=== PATIENT | female | born 1975 | race Caucasian/White ===

== ENCOUNTER 2016-08-13 01:05 | Inpatient (IN) | payer MEDICAID, OTHER ==
[~2016-08-13] VITALS: Ht 144.8 cm; Wt 47.1 kg
[2016-08-13 03:23] VITALS: BP 100/60; PULSE 83; TEMP 98.1
[2016-08-13] MEDS ORDERED: MAGNESIUM HYDROXIDE SUSP 30 ML CUP PO PRN (03:45)
--- NOTE | 2016-08-13 13:22 | HHI.HP ---
Provisional Diagnosis Admission Date Aug 13, 2016 at 03:05 [place] I. Schizophrenia Certification of Person's Competence To Provide Express and Informed Consent I have personally examined Maribel Hennessy , a person being served at [facility] on, Aug 13, 2016 13:12. Express and informed consent means consent voluntarily given in writing, by a competent person, after sufficient explanation and disclosure of the subject matter involved to enable the person to make a knowing and willful decision without any element of force, fraud, deceit, duress, or other form of constraint or coercion. This person is 18 years of age or older, is not now known to be incompetent to consent to treatment with a guardian advocate, and does not have a health care surrogate or proxy currently making medical treatment decisions. I have found this person to be one of the following: [] Competent to provide express and informed consent, as defined above, for voluntary admission to this facility and is competent to provide express and informed consent for treatment. He/she has the consistent capacity to make well reasoned, willful, and knowing decisions concerning his or her medical or mental health treatment. The person fully and consistently understands the purpose of the admission for examination/placement and is fully capable of personally exercising all rights assured under [place] [x] Incompetent to provide express and informed consent to voluntary admission, and this is incompetent to provide express and informed consent to treatment. The person must be transferred to involuntary status and a petition for a guardian advocate filed with the Circuit Court. [] Refusing to provide express and informed consent to voluntary admission but is competent to provide express and informed consent for treatment. The person must be discharged or transferred to involuntary status. Form shall be completed within 24 hours of a person's arrival at the receiving facility and filed in the clinical record of each person: 1. Admitted on a voluntary basis 2. Permitted to provide express and informed consent to his/her own treatment 3. Allowed to transfer from involuntary to voluntary status 4. Prior to permitting a person to consent to his or her own treatment after having been previously found incompetent to consent to treatment. History of Present Illness Capacity: Lacks Capacity HPI This is a 41-year-old female who was transferred to this facility under a Christianson act which was initiated at [facility]. The patient is an extremely poor historian and indicates that she is homeless and living in [place]. She is unable to provide information as to how she was taken to [facility] for evaluation. She demonstrates significant loose associations, bordering on word salad. She makes remarks such as her and her father being the same person. She is unable to provide information as to how she obtains money or food or prison. She is also unable to provide information regarding any family members or support system that she might have. She is admitting to being paranoid and according to report, felt the psychiatric security nurse at [facility] was persecuting her. She is obviously unable to care for herself and she presents as dirty and disheveled, edentulous, thin and disorganized. Review of Systems ROS Limitations: Clinical Condition Except as stated in HPI: all other systems reviewed are Neg Past Psych History Psychological trauma history Unknown Violence risk - others (6 mos) Minimal Violence risk - self (6 mos) Minimal Substance Abuse History Drugs/Alcohol past 12 months Denied Past Family Social History Coded Allergies: No Known Allergies (Unverified , 08/13/16) Past Medical History Patient indicates she has a history of thyroid disease. Current Medications Medications (Trade) Dose Ordered Sig/Dain Route Start Time Stop Time Status Last Admin (Tylenol) 650 mg Q4H PRN PO 08/13/16 03:45 (Milk Of Magnesia Liq) 30 ml DAILY PRN PO 08/13/16 03:45 (Mag-Al Plus Susp Liq) 30 ml Q6H PRN PO 08/13/16 03:45 Family History Unknown Social History Unable to provide with the possible exception of her denial regarding drug and alcohol use. Patient's Strengths (min. 2) Young and resilient. Physical Exam GENERAL: SKIN: Warm and dry. HEAD: Normocephalic. EYES: No scleral icterus. No injection or drainage. NECK: Supple, trachea midline. No JVD or lymphadenopathy. CARDIOVASCULAR: Regular rate and rhythm without murmurs, gallops, or rubs. RESPIRATORY: Breath sounds equal bilaterally. No accessory muscle use. GASTROINTESTINAL: Abdomen soft, non-tender, nondistended. MUSCULOSKELETAL: No cyanosis, or edema. BACK: Nontender without obvious deformity. No CVA tenderness. Vital Signs Vital Signs Date Time Temp Pulse Resp B/P Pulse Ox O2 Delivery O2 Flow Rate FiO2 08/13/16 03:23 98.1 83 100/60 Mental Status Examination Appearance Disheveled Speech: Incoherent Orientation: Person Memory: Impaired (describe) Thought Process: Organized, Loose Association Thought Content: Bizarre thinking, Paranoid Hallucination Type: None Attention and Concentration: Easily Distracted Suicidal Ideation: Yes Previous Suicide Attempts: No Suicidal Plan Remarks Has no suicide plan but makes vague references to suicidal thinking. Homicidal Ideation: No Previous Homicide Attempts: No Insight: Fair, Poor Judgement: Unrealistic Affect: Anxious Affect if Inappropriate: Blunt Mood: Appropriate, Sad Motor Activity: Normal gait Assessment & Plan Problem List: (1) Schizophrenia ICD Code: F20.9 (2) Thyroid disease ICD Code: E07.9 Assessment & Plan Estimated LOS: days patient will be observed and evaluated for the need for thyroid medication and psychotropic medication. She will most likely be started on antipsychotic medicine due to her disorganized thinking and loose associations as well as paranoia. We will obtain a medication consult from the hospitalist physician regarding her thyroid disease. Laboratory studies will be provided to obtain information regarding thyroxine level. We will attempt to gather more information regarding her past treatment history. This includes any family support she may have. This physician has spoken with nursing and social work regarding their assessment of the patient and they are struggling to make sense of the patient's history and difficulty providing information. Humberto Vera MD Aug 13, 2016 13:22
[2016-08-13 18:00] VITALS: BP 101/57; PULSE 92; RESP 18; TEMP 98.4; O2SAT 100
[2016-08-14 05:30] VITALS: BP 96/59; PULSE 82; RESP 18; TEMP 98.2; O2SAT 100
--- NOTE | 2016-08-14 10:23 | HHI.PYPN ---
Subjective Remarks Patient remains confused with marked looseness of associations. She is unable to care for herself. This physician feels she should be treated with antipsychotic medication. Abilify is being recommended. Review of Systems ROS Limitations: Clinical Condition Except as stated in HPI: all other systems reviewed are Neg Objective Alert: Yes [place]: Person, Place Mood: Anxious Affect: Restricted Memory Intact: Immediate, Remote Hallucinations: Other Delusions: Yes Delusion Type: Paranoid, Other Suicidal: Ideation Homicidal: Ideation Insight/Judgement Markedly impaired. Vitals/IOs Vital Signs Date Time Temp Pulse Resp B/P Pulse Ox O2 Delivery O2 Flow Rate FiO2 08/14/16 05:30 98.2 82 18 96/59 100 Assessment & Plan Problem List: (1) Schizophrenia ICD Code: F20.9 (2) Thyroid disease ICD Code: E07.9 Assessment & Plan Estimated LOS: days patient remains confused, disorganized, paranoid and unable to make decisions for herself. This physician is recommending a guardian advocate and a second opinion. We will attempt to prescribed Abilify. Justification for Cont. Inpt. Unable to care for self. Request HC Surrog/Guard Advoc?: Yes Humberto Vera MD Aug 14, 2016 10:23
--- NOTE | 2016-08-14 15:30 | PD.CONS ---
Provisional Diagnosis Admission Date Aug 13, 2016 at 03:05 [place] I. Schizophrenia History of Present Illness Service Psychiatry Consult Requested By Primary Care Physician Unknown HPI This is a 41-year-old female who was transferred to this facility under a Christianson act which was initiated at [facility]. The patient is an extremely poor historian and indicates that she is homeless and living in [place]. She is unable to provide information as to how she was taken to [facility] for evaluation. She demonstrates significant loose associations, bordering on word salad. She makes remarks such as her and her father being the same person. She is unable to provide information as to how she obtains money or food or half-way. She is also unable to provide information regarding any family members or support system that she might have. She is admitting to being paranoid and according to report, felt the it security architect at [facility] was persecuting her. She is obviously unable to care for herself and she presents as dirty and disheveled, edentulous, thin and disorganized. 08/14/16 Above note dictated by Dr. Vera reviewed and agreed with. Patient is a 41-year -old female admitted to Dr. Vera service under the Christianson act. Patient seen by me with nurse Danny medical student Carli patient disorganized, psychotic, and confused appears to be of limited cognitive ability. Dr. Vera signed first opinion petition supporting Christianson act. I agree. Patient meets criteria for involuntary psychiatric hospitalization under the Christianson act. Thus I'll cosign second opinion petition supporting Christianson act Past Family Social History Coded Allergies: No Known Allergies (Unverified , 08/13/16) Current Medications Medications (Trade) Dose Ordered Sig/Dain Route Start Time Stop Time Status Last Admin (Tylenol) 650 mg Q4H PRN PO 08/13/16 03:45 (Milk Of Magnesia Liq) 30 ml DAILY PRN PO 08/13/16 03:45 (Mag-Al Plus Susp Liq) 30 ml Q6H PRN PO 08/13/16 03:45 Patient's Strengths (min. 2) Young and resilient. Physical Exam Vital Signs Vital Signs Date Time Temp Pulse Resp B/P Pulse Ox O2 Delivery O2 Flow Rate FiO2 08/14/16 05:30 98.2 82 18 96/59 100 Mental Status Examination Speech: Incoherent Orientation: Person Memory: Impaired (describe) Thought Process: Organized, Loose Association Thought Content: Bizarre thinking, Paranoid Hallucination Type: None Attention and Concentration: Easily Distracted Suicidal Ideation: Yes Previous Suicide Attempts: No Homicidal Ideation: No Previous Homicide Attempts: No Insight: Fair, Poor Judgement: Unrealistic Affect: Anxious Affect if Inappropriate: Blunt Mood: Appropriate, Sad Motor Activity: Normal gait Assessment & Plan Problem List: (1) Schizophrenia ICD Code: F20.9 (2) Thyroid disease ICD Code: E07.9 Assessment & Plan Estimated LOS: days Request HC Surrog/Guard Advoc?: Yes Shailesh Davis MD Aug 14, 2016 15:30
[2016-08-14 18:39] VITALS: BP 112/56; PULSE 87; RESP 18; TEMP 98.1; O2SAT 100
[2016-08-15 05:20] VITALS: BP 105/56; PULSE 87; RESP 18; TEMP 99; O2SAT 99
--- NOTE | 2016-08-15 12:46 | HHI.PYPN ---
Subjective Remarks Remains significantly confused and disorganized in thought and expression. Review of Systems ROS Limitations: Clinical Condition Except as stated in HPI: all other systems reviewed are Neg Objective Alert: Yes [place]: Person, Place Mood: Anxious Affect: Restricted Memory Intact: Immediate, Remote Hallucinations: Other Delusions: Yes Delusion Type: Paranoid, Other Suicidal: Ideation Homicidal: Ideation Insight/Judgement Markedly impaired and can't able to take care of herself. Vitals/IOs Vital Signs Date Time Temp Pulse Resp B/P Pulse Ox O2 Delivery O2 Flow Rate FiO2 08/15/16 05:20 99.0 87 18 105/56 99 Intake and Output 08/14/16 08/14/16 08/14/16 07:59 15:59 23:59 Intake Total 480 ml Balance 480 ml Assessment & Plan Problem List: (1) Schizophrenia ICD Code: F20.9 (2) Thyroid disease ICD Code: E07.9 Assessment & Plan Estimated LOS: days ordered Abilify and will continue to titrate dose. Anticipate using long-acting medication due to history of noncompliance. Justification for Cont. Inpt. Significantly unable to care for herself. Request HC Surrog/Guard Advoc?: Yes Humberto Vera MD Aug 15, 2016 12:46
[2016-08-15 19:24] VITALS: BP 150/50; PULSE 81; RESP 18; TEMP 98.5; O2SAT 100
[2016-08-16 06:20] VITALS: BP 119/63; PULSE 54; RESP 18; TEMP 98.1; O2SAT 97
--- NOTE | 2016-08-16 15:15 | HHI.PYPN ---
Subjective Remarks Pt seen and discussed with staff. She remains disorganized and appears to be responding to internal stimuli. Staff reports that pt has reported suicidal ideation. Pts mother is serving as HCS and has consented for trial of Abilify. Pt states that she is agreeable to "get back on meds". She later approaches and says that she has decided to attend school "on the other unit" to finish her degree. She reports that she has a hx of thyroid disease and appears to have a goiter. Reviewed chart and do not see recent thyroid studies. Will order thyroid studies and consult hospitalist. Objective Alert: Yes [place]: Person, Place Mood: Anxious Affect: Restricted Memory Intact: Immediate, Remote Hallucinations: Other Delusions: Yes Delusion Type: Paranoid, Other Suicidal: Ideation Homicidal: Ideation Insight/Judgement poor Remarks disorganized Vitals/IOs Vital Signs Date Time Temp Pulse Resp B/P Pulse Ox O2 Delivery O2 Flow Rate FiO2 08/16/16 06:20 98.1 54 18 119/63 97 Assessment & Plan Problem List: (1) Schizophrenia ICD Code: F20.9 (2) Thyroid disease ICD Code: E07.9 Assessment & Plan Start Abilify trial for psychosis. Thyroid studies and medicine consult for goiter. Estimated LOS: days Justification for Cont. Inpt. severe impairments in reality construction. Request HC Surrog/Guard Advoc?: Yes Donita Harrington MD Aug 16, 2016 15:15
[2016-08-16 18:27] VITALS: BP 106/58; PULSE 84; RESP 18; TEMP 97.5; O2SAT 100
[2016-08-16] MEDS: ARIPiprazole 10 MG TAB PO SCH (21:00)
[2016-08-17] MEDS: ACETAMINOPHEN 325 MG TAB PO PRN (00:28)
[2016-08-17 06:27] VITALS: BP 108/55; PULSE 94; RESP 17; TEMP 97.1; O2SAT 96
[2016-08-17 07:42] LABS: FREE T4 0.98 NG/DL (0.76-1.46)
--- NOTE | 2016-08-17 10:55 | PD.CONS ---
HPI Service [facility] Consult Requested By psychiatry service Reason for Consult medical management Primary Care Physician Unknown Diagnoses: History of Present Illness The patient is a 41-year-old female with past medical history of schizophrenia, hypertension, goiter and hypothyroidism, GERD who is in patient to psychiatric unit for treatment of schizophrenia. There disease consulted for management of equal problems. Patient denies having any chest pain, shortness of breath, nausea, vomiting, diarrhea or constipation. No fever or chills. 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 Review of Systems Except as stated in HPI: all other systems reviewed are Neg 12 ROS reviewed and negative except as stated in history of present illness Past Family Social History Allergies: Coded Allergies: No Known Allergies (Unverified , 08/13/16) Past Medical History Hypertension Goiter/thyroid hypothyroidism GERD Past Surgical History Thyroidectomy Vaginal reconstruction Family History Father hypertension and UT at the age of 62 Mother hypertension Social History Denies alcohol use tobacco use or illicit drug use Physical Exam Vital Signs Vital Signs Date Time Temp Pulse Resp B/P Pulse Ox O2 Delivery O2 Flow Rate FiO2 08/17/16 06:27 97.1 94 17 108/55 96 08/16/16 18:27 97.5 84 18 106/58 100 Physical Exam GENERAL: This is a thin 41-year-old female, appearing older than the stated age , well-nourished, well-developed patient, in no apparent distress. SKIN: No rashes, ecchymoses or lesions. Cool and dry. HEAD: Atraumatic. Normocephalic. No temporal or scalp tenderness. EYES: Pupils equal round and reactive. Extraocular motions intact. No scleral icterus. No injection or drainage. ENT: Nose without bleeding, purulent drainage or septal hematoma. Throat without erythema, tonsillar hypertrophy or exudate. Uvula midline. Airway patent. NECK: Trachea midline. No JVD or lymphadenopathy. Supple, nontender, no meningeal signs. CARDIOVASCULAR: Regular rate and rhythm without murmurs, gallops, or rubs. RESPIRATORY: Clear to auscultation. Breath sounds equal bilaterally. No wheezes , rales, or rhonchi. GASTROINTESTINAL: Abdomen soft, non-tender, nondistended. No hepato-splenomegaly , or palpable masses. No guarding. MUSCULOSKELETAL: Extremities without clubbing, cyanosis, or edema. No joint tenderness, effusion, or edema noted. No calf tenderness. Negative Homans sign bilaterally. NEUROLOGICAL: Awake and alert. Cranial nerves II through XII intact. Motor and sensory grossly within normal limits. Five out of 5 muscle strength in all muscle groups. Normal speech. Laboratory Laboratory Tests Test 08/17/16 06:41 Free Thyroxine 0.98 Thyroid Stimulating Hormone 5.730 3rd Gen Assessment and Plan Assessment and Plan 41-year-old female with past medical history of schizophrenia, hypertension, goiter and hypothyroidism, GERD Schizophrenia started Abilify for psychiatry. Continue management per psychiatry History of goiter/hypothyroidism. Elevated TSH. Start Synthroid is 50 MCG's daily. History of hypertension. Blood pressure is controlled at this time without medications. Hold on medications at this time. Monitor blood pressure. GERD. Start PPI. DVT prophylaxis ambulation Do reconciliation medications. Thank you for this consultation. Discussed Condition With Patient, nurse Claudia Coello MD Aug 17, 2016 10:55
[2016-08-17 18:00] VITALS: BP 101/61; PULSE 113; RESP 17; TEMP 98.8; O2SAT 96
[2016-08-17] MEDS: ARIPiprazole 10 MG TAB PO SCH (20:09)
--- NOTE | 2016-08-17 20:28 | HHI.PYPN ---
Subjective Remarks Pt seen and discussed with staff. Pt is tolerating Abilify without side effects. She remains delusional and disorganized, but reports sleep is better. She denies SI/HI. Objective Alert: Yes [place]: Person, Place Mood: Anxious Affect: Restricted Memory Intact: Immediate, Remote Hallucinations: Other Delusions: Yes Delusion Type: Paranoid, Other Suicidal: Ideation Homicidal: Ideation Insight/Judgement poor Labs Test 08/17/16 06:41 Free Thyroxine 0.98 NG/DL Thyroid Stimulating Hormone 5.730 uIU/ML 3rd Gen Vitals/IOs Vital Signs Date Time Temp Pulse Resp B/P Pulse Ox O2 Delivery O2 Flow Rate FiO2 08/17/16 18:00 98.8 113 17 101/61 96 Assessment & Plan Problem List: (1) Schizophrenia ICD Code: F20.9 (2) Thyroid disease ICD Code: E07.9 Assessment & Plan Continue current tx plan. Estimated LOS: days Justification for Cont. Inpt. safety, self-neglect Request HC Surrog/Guard Advoc?: Yes Donita Harrington MD Aug 17, 2016 20:28
[2016-08-18 05:56] VITALS: BP 93/59; PULSE 95; RESP 18; TEMP 98.5; O2SAT 97
[2016-08-18] MEDS: LEVOTHYROXINE SODIUM 50 MCG TAB PO SCH (06:16)
[2016-08-18] MEDS: PANTOPRAZOLE SOD 20 MG DELAYED RELEASE TAB PO SCH (08:11)
--- NOTE | 2016-08-18 13:43 | HHI.PYPN ---
Subjective Remarks Patient remains grossly psychotic and disorganized. She is unable to put together logical or clear sentences. She is certainly unable to care for herself. Review of Systems Except as stated in HPI: all other systems reviewed are Neg Objective Alert: Yes [place]: Person, Place Mood: Anxious Affect: Restricted Memory Intact: Immediate, Remote Hallucinations: Other Delusions: Yes Delusion Type: Paranoid, Other Suicidal: Ideation Homicidal: Ideation Insight/Judgement Markedly impaired Vitals/IOs Vital Signs Date Time Temp Pulse Resp B/P Pulse Ox O2 Delivery O2 Flow Rate FiO2 08/18/16 05:56 98.5 95 18 93/59 97 Assessment & Plan Problem List: (1) Schizophrenia ICD Code: F20.9 (2) Thyroid disease ICD Code: E07.9 Assessment & Plan This physician is titrating the dose of Abilify from 10-15 mg by mouth daily at bedtime. It is anticipated the patient will be started on Abilify Maintena if she will allow it. Estimated LOS: days Justification for Cont. Inpt. Unable to care for self. Request HC Surrog/Guard Advoc?: Yes Humberto Vera MD Aug 18, 2016 13:42
--- NOTE | 2016-08-18 16:24 | HHI.PR ---
Addendum to Inpatient Note Addendum Reason: Additional Documentation Additional Information Patient was started on levothyroxine 50mcg daily. As per RN Geraldine, unable to get hold of family member to verify patient's medication or dose of medication synthroid she is taking. Patient is unreliable with medication and dosing. She will continue with the same dose of levothyroxine for now. Recommend to repeat TSH, T4 in 6 weeks. F/U with PCP when discharged. We will sign off for now. Stable from Hospitalist standpoint. Please reconsult us if needed. Thank you. (Jonathan Topete) Jonathan Topete Aug 18, 2016 16:24 Brant Dudley DO Aug 19, 2016 00:03
[2016-08-18 19:40] VITALS: BP 98/55; PULSE 100; RESP 18; TEMP 98.4; O2SAT 96
[2016-08-18] MEDS: ARIPiprazole 15 MG TAB PO SCH (21:00)
[2016-08-18] MEDS: ACETAMINOPHEN 325 MG TAB PO PRN (21:30)
[2016-08-19] MEDS: LEVOTHYROXINE SODIUM 50 MCG TAB PO SCH (06:00)
[2016-08-19 06:24] VITALS: BP 110/61; PULSE 88; RESP 18; TEMP 97.8
[2016-08-19] MEDS: PANTOPRAZOLE SOD 20 MG DELAYED RELEASE TAB PO SCH (08:37)
--- NOTE | 2016-08-19 11:35 | HHI.PYPN ---
Subjective Remarks Patient was seen and discussed with the staff development nurse. Patient claimed that she has been sleeping fairly well. She denied any auditory or visual hallucinations. No side effects were complained. No behavior or management problem reported. She would like to go to a long term. We will assess social media senior associate to look into that. Continue with the same treatment Review of Systems Except as stated in HPI: all other systems reviewed are Neg Psychiatric: COMPLAINS OF: Mood changes, Depression Objective Alert: Yes [place]: Person, Place Mood: Anxious, Depressed Affect: Restricted Memory Intact: Immediate, Remote Hallucinations: Other Delusions: Yes Delusion Type: Paranoid, Other Suicidal: Ideation (patient denied any suicidal ideation intentions or plan) Homicidal: Ideation (denies any homicidal ideation intentions or plan) Insight/Judgement Limited Vitals/IOs Vital Signs Date Time Temp Pulse Resp B/P Pulse Ox O2 Delivery O2 Flow Rate FiO2 08/19/16 06:24 97.8 88 18 110/61 08/18/16 19:40 96 Assessment & Plan Problem List: (1) Schizophrenia ICD Code: F20.9 (2) Thyroid disease ICD Code: E07.9 Assessment & Plan Estimated LOS: days Justification for Cont. Inpt. Risk of decompensation and monitoring of the medication Request HC Surrog/Guard Advoc?: Yes Go Yousif MD Aug 19, 2016 11:35
[2016-08-19 18:57] VITALS: BP 100/60; PULSE 97; RESP 16; TEMP 98.8; O2SAT 100
[2016-08-19] MEDS: ARIPiprazole 15 MG TAB PO SCH (21:24)
[2016-08-19] MEDS: ALUMINUM/MAGNESIUM/SIMETH 30 ML CUP PO PRN (21:26)
[2016-08-20] MEDS: LEVOTHYROXINE SODIUM 50 MCG TAB PO SCH (05:57)
[2016-08-20 06:19] VITALS: BP 105/55; PULSE 90; RESP 16; TEMP 97.7; O2SAT 99
[2016-08-20] MEDS: PANTOPRAZOLE SOD 20 MG DELAYED RELEASE TAB PO SCH (09:16)
--- NOTE | 2016-08-20 14:47 | HHI.PYPN ---
Subjective Remarks Patient continues to be disorganized and delusional. Apparently she has family members willing to assist her with a live-in [place]. Patient wants to live in a care home here in [facility] but there is no such opening or opportunity at this time. Review of Systems ROS Limitations: Clinical Condition Except as stated in HPI: all other systems reviewed are Neg Objective Alert: Yes [place]: Person, Place Mood: Anxious, Depressed Affect: Restricted Memory Intact: Immediate Hallucinations: Other Delusions: Yes Delusion Type: Paranoid, Other Suicidal: Ideation (patient denied any suicidal ideation intentions or plan) Homicidal: Ideation (denies any homicidal ideation intentions or plan) Insight/Judgement Insight and judgment remain significantly impaired. Vitals/IOs Vital Signs Date Time Temp Pulse Resp B/P Pulse Ox O2 Delivery O2 Flow Rate FiO2 08/20/16 06:19 97.7 90 16 105/55 99 Assessment & Plan Problem List: (1) Schizophrenia ICD Code: F20.9 (2) Thyroid disease ICD Code: E07.9 Assessment & Plan Estimated LOS: days this physician hopes to convince the patient to return to her family in [place]. She has no one to care for her or look out for her here in [place]. With her consent, it is hope she can be discharged in the next 3 days. Justification for Cont. Inpt. Unable to care for self. Request HC Surrog/Guard Advoc?: Yes Humberto Vera MD Aug 20, 2016 14:47
[2016-08-20 18:30] VITALS: BP 115/71; PULSE 109; RESP 16; TEMP 98.3; O2SAT 100
[2016-08-20] MEDS: ARIPiprazole 15 MG TAB PO SCH (21:33)
[2016-08-20] MEDS: ALUMINUM/MAGNESIUM/SIMETH 30 ML CUP PO PRN (22:45)
[2016-08-20] MEDS: ACETAMINOPHEN 325 MG TAB PO PRN (22:47)
[2016-08-20 22:54] VITALS: BP 132/76; PULSE 108; RESP 14; TEMP 98.6; O2SAT 100
[2016-08-21] MEDS: LEVOTHYROXINE SODIUM 50 MCG TAB PO SCH (05:47)
[2016-08-21 06:20] VITALS: BP 116/72; PULSE 88; RESP 16; TEMP 97.6; O2SAT 98
[2016-08-21] MEDS: PANTOPRAZOLE SOD 20 MG DELAYED RELEASE TAB PO SCH (08:58)
--- NOTE | 2016-08-21 12:43 | HHI.PYPN ---
Subjective Remarks Remains easily confused but more calm, pleasant and cooperative. Wants to go home to [place]. Review of Systems Except as stated in HPI: all other systems reviewed are Neg Objective Alert: Yes [place]: Person, Place Mood: Anxious, Depressed Affect: Restricted Memory Intact: Immediate Hallucinations: Other Delusions: Yes Delusion Type: Paranoid, Other Suicidal: Ideation (patient denied any suicidal ideation intentions or plan) Homicidal: Ideation (denies any homicidal ideation intentions or plan) Insight/Judgement Impaired but improved. Vitals/IOs Vital Signs Date Time Temp Pulse Resp B/P Pulse Ox O2 Delivery O2 Flow Rate FiO2 08/21/16 06:20 97.6 88 16 116/72 98 Assessment & Plan Problem List: (1) Schizophrenia ICD Code: F20.9 (2) Thyroid disease ICD Code: E07.9 Assessment & Plan Cont current meds and attempt discharge to family in [place] with arrangements being made. Estimated LOS: days Justification for Cont. Inpt. Unable to care for self. Request HC Surrog/Guard Advoc?: Yes Humebrto Vera MD Aug 21, 2016 12:43
[2016-08-21 19:56] VITALS: BP 103/74; PULSE 87; RESP 16; TEMP 97.6; O2SAT 97
[2016-08-21] MEDS: ARIPiprazole 15 MG TAB PO SCH (20:17)
[2016-08-22] MEDS: ACETAMINOPHEN 325 MG TAB PO PRN (04:16)
[2016-08-22] MEDS: ALUMINUM/MAGNESIUM/SIMETH 30 ML CUP PO PRN (04:16)
[2016-08-22] MEDS: LEVOTHYROXINE SODIUM 50 MCG TAB PO SCH (05:13)
[2016-08-22 05:33] VITALS: BP 109/71; PULSE 83; RESP 18; TEMP 98.4; O2SAT 99
[2016-08-22] MEDS: PANTOPRAZOLE SOD 20 MG DELAYED RELEASE TAB PO SCH (08:57)
--- NOTE | 2016-08-22 11:15 | HHI.DS ---
Psychiatry Discharge Summary Inpatient Psychiatric care?: Yes Advance Directive: No Mental Health AdvanceDirective: No Health Care Proxy: No Admission Admission Date Aug 13, 2016 at 03:05 Admission Diagnosis: (1) Schizophrenia ICD Code: F20.9 Brief History This is a 41-year-old female who was transferred to this facility under a Christians[place] act which was initiated at [facility]. The patient is an extremely poor historian and indicates that she is homeless and living in [place]. She is unable to provide information as to how she was taken to [facility] for evaluation. She demonstrates significant loose associations, bordering on word salad. She makes remarks such as her and her father being the same person. She is unable to provide information as to how she obtains money or food or long-term. She is also unable to provide information regarding any family members or support system that she might have. She is admitting to being paranoid and according to report, felt the facility security officer at [facility] was persecuting her. She is obviously unable to care for herself and she presents as dirty and disheveled, edentulous, thin and disorganized. 08/14/16 Above note dictated by Dr. Vera reviewed and agreed with. Patient is a 41-year -old female admitted to Dr. Vera service under the Christianson act. Patient seen by me with nurse Danny medical student Carli patient disorganized, psychotic, and confused appears to be of limited cognitive ability. Dr. Vera signed first opinion petition supporting Christianson act. I agree. Patient meets criteria for involuntary psychiatric hospitalization under the Christianson act. Thus I'll cosign second opinion petition supporting Christianosn act Tobacco Use In Past 30 Days: No Tobacco Past 30 Days Alcohol Use: Never Hospital Course Patient participated in individual and group therapies. She was started on antipsychotic medication, Abilify, to assist with clearing her thought process and stabilize her mood. At the time of discharge she had responded to the medicine appropriately. She will be followed in [place]. She is being discharged to [place] because her family lives there. No procedures were done. Results Blood Pressure 109 / 71 Vital Signs Date Time Temp Pulse Resp B/P Pulse Ox O2 Delivery O2 Flow Rate FiO2 08/22/16 05:33 98.4 83 18 109/71 99 None pending. Summary of Procedures None. Pending results at discharge: No Medications # of Antipsychotic meds at D/C: 1 Appropriate >1 Antipsych meds?: 1 Approp Antipsych med options 1 - Minimum of three failed multiple trials of monotherapy. 2 - Documented plan to taper to monotherapy due to previous use of multiple meds OR cross-taper in progress at D/C. 3 - Documentation of augmentation of Clozapine. 4 - Justification other than those listed in allowable values 1-3, document here : Discharge Discharge Date: Aug 23, 2016 Discharge Diagnosis: (1) Schizophrenia Diagnosis: Principal ICD Code: F20.9 Mental Status Exam at Disch The patient was calm, pleasant and cooperative. She does not demonstrate any psychotic symptoms or homicidal thinking or suicidal thinking. Cognition was felt to be intact and at baseline. She was tolerating her medicines quite well. Pt Condition on Discharge: Stable Discharge Disposition: Discharge Home Discharge Instructions Diet Instructions: As Tolerated, No Restrictions Activities you can perform: Regular-No Restrictions Scheduled Appointment: In [facility] Discharge Time <= 30 minutes Discharge/Advance Care Plan Health Problems: (1) Schizophrenia (2) Thyroid disease Goals to promote your health * To prevent worsening of your condition and complications * To maintain your health at the optimal level Directions to meet your goals Take your medications as prescribed Follow your dietary instruction Follow activity as directed Keep your appointments as scheduled Take your immunizations and boosters as scheduled If your symptoms worsen call your PCP, if no PCP go to Urgent Care Center or Emergency Room For 24/ questions related to your inpatient stay or results of tests pending at discharge, please contact Dr. Humberto Vera at Smoking is Dangerous to Your Health. Avoid second hand smoking Problem Qualifiers (1) Schizophrenia: Qualified Code: F20.0 - Paranoid schizophrenia Humberto Vera MD Aug 22, 2016 11:14
[2016-08-22] MEDS ORDERED: ARIP1TAB13 PO (11:20)
[2016-08-22] MEDS ORDERED: PANT20 PO (11:20)
[2016-08-22] MEDS ORDERED: LEVO.05 PO (11:20)
[2016-08-22 18:27] VITALS: BP 127/81; PULSE 99; RESP 18; TEMP 98.4; O2SAT 100
[2016-08-22] MEDS: ARIPiprazole 15 MG TAB PO SCH (20:28)
[2016-08-23] MEDS: LEVOTHYROXINE SODIUM 50 MCG TAB PO SCH (04:39)
== END 2016-08-23 05:45 | disposition home or self-care (01) | DRG 885 ==
LOC: H260 03:05
PROVIDERS: ADMIT Psychiatry & Neurology Psychiatry; ATTEND Psychiatry & Neurology Psychiatry
DX: F20.9 Schizophrenia, unspecified (principal); Z91.14 Patient's other noncompliance with medication regimen; I10 Essential (primary) hypertension; E04.9 Nontoxic goiter, unspecified; K21.9 Gastro-esophageal reflux disease without esophagitis; E03.9 Hypothyroidism, unspecified
CPT/HCPCS: 84439; 84443